=== PATIENT | female | born 1990 | race Caucasian/White ===

== ENCOUNTER 2018-10-20 20:11 | Emergency (ER) | payer MEDICAID ==
[~2018-10-20] VITALS: Ht 172.7 cm; Wt 65.8 kg
[2018-10-20 20:17] VITALS: BP 158/86
[2018-10-20 22:35] LABS: Basophils # (auto) 0 uL; Basophils % (auto) 0.4 % (0.0-2.0); Eosinophils # (auto) 0.1 uL; Eosinophils % (auto) 0.9 % (0.0-7.0); Hematocrit 35.7 % (36.0-46.0); Hemoglobin 12.3 g/dL (12.2-16.2); Lymphocytes % (auto) 28.2 % (10.0-50.0); Mean Corpuscular Hemoglobin 32.3 pg (28.0-32.0); Mean Corpuscular Hgb Conc. 34.3 g/dL (32.0-36.0); Monocytes # (auto) 0.5 uL; Monocytes % (auto) 7.5 % (0.0-12.0); Neutrophils # (auto) 4.4 uL; Nucleated Red Blood Cells % 0.1 %; Platelet Count (auto) 214 10^3/uL (140-450); Red Cell Distribution Width 12.4 % (11.8-14.3); White Blood Cell 6.9 10^3/uL (4.4-10.8)
[2018-10-20 22:54] LABS: BUN/Creatinine Ratio 18.6; Calcium 8.8 mg/dL (8.5-10.1); INR 0.91 (0.9-1.15)
[2018-10-20 22:57] LABS: Bilirubin, Total 0.2 mg/dL (0.2-1.0); Total Protein 6.9 g/dL (6.4-8.2)
== END 2018-10-21 01:47 | disposition left against medical advice (07) ==
LOC: ER 20:12
DX: R22.41 Localized swelling, mass and lump, right lower limb (principal); Z53.21 Procedure and treatment not carried out due to patient leaving prior to being seen by health care provider
CPT/HCPCS: 36415; 80053; 84702; 85025; 85610; 85730; 93971

== ENCOUNTER 2019-01-10 17:25 | Observation (INO) | payer MEDICAID ==
[~2019-01-10] VITALS: Ht 172.7 cm; Wt 68.0 kg
[2019-01-10] MEDS ORDERED: LACTATED RINGER'S 1,000 ML IV ONE (18:46)
[2019-01-10] MEDS ORDERED: TERBUTALINE SULFATE 1 MG/ML 1ML VIAL SC ONE (19:06)
[2019-01-10] MEDS: TERBUTALINE SULFATE 1 MG/ML 1ML VIAL SC SCH ×2 (19:25→21:14)
== END 2019-01-10 22:27 | disposition home or self-care (01) | DRG 566 ==
LOC: LDRP 17:25
PROVIDERS: ADMIT Specialist; ATTEND Specialist
DX: O62.9 Abnormality of forces of labor, unspecified (principal); F17.210 Nicotine dependence, cigarettes, uncomplicated; O99.333 Smoking (tobacco) complicating pregnancy, third trimester; Z3A.28 28 weeks gestation of pregnancy
CPT/HCPCS: 59025; 81002; 96372; G0378; J3105; 96365; 96366; 96374; 96375

== ENCOUNTER 2022-01-07 17:51 | Emergency (ER) | payer MEDICAID ==
[~2022-01-07] VITALS: Ht 172.7 cm; Wt 150.0 kg
[2022-01-07 18:30] VITALS: BP 119/72
[2022-01-07] MEDS ORDERED: TETANUS-DIPTH-ACEL PERTUSSIS 0.5ML SYR Tdap IM ONE (21:45)
[2022-01-07] MEDS ORDERED: AMOX-277 PO (23:22)
[2022-01-07] MEDS ORDERED: IBUP800T26 PO (23:22)
== END 2022-01-07 23:34 | disposition home or self-care (01) ==
LOC: ER 17:51
DX: S90.851A Superficial foreign body, right foot, initial encounter (principal); W26.8XXA Contact with other sharp object(s), not elsewhere classified, initial encounter; Y93.89 Activity, other specified; Y92.89 Other specified places as the place of occurrence of the external cause; Y99.8 Other external cause status
CPT/HCPCS: 10120; 73630; 90471; 90715